=== PATIENT | male | born 2005 | race Asian ===

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

== ENCOUNTER 2025-02-01 12:27 | Emergency (ER) | payer MEDICAID, OTHER ==
[~2025-02-01] VITALS: Ht 274.3 cm; Wt 57.4 kg
[2025-02-01 12:37] VITALS: BP 114/76; PULSE 120; RESP 18; TEMP 99; O2SAT 100
== END 2025-02-01 15:34 | disposition left against medical advice (07) ==
LOC: ER 12:29
DX: R10.9 Unspecified abdominal pain (principal); R19.7 Diarrhea, unspecified; Z53.21 Procedure and treatment not carried out due to patient leaving prior to being seen by health care provider